=== PATIENT | female | born 1975 | race Caucasian/White ===

== ENCOUNTER → 2019-12-12 18:01 | Outpatient (CLI) | payer OTHER, SELFPAY | PROVIDERS: PCP Internal Medicine; Referring Provider Family Medicine; Visit Provider Family Medicine | DX: Z20.828 Contact with and (suspected) exposure to other viral communicable diseases (principal) | CPT/HCPCS: 87635; 94799; U0003 ==

== ENCOUNTER 2020-08-06 10:33 | Outpatient (RCR) | payer OTHER, SELFPAY | END 2020-10-07 23:59 | LOC: IMMUN 10:33 | PROVIDERS: PCP Internal Medicine; Visit Provider Family Medicine | DX: Z23 Encounter for immunization (principal) | CPT/HCPCS: 0001A; 0002A; 91300 ==

== ENCOUNTER 2021-02-03 09:15 | Day surgery (SDC) | payer OTHER, SELFPAY ==
[2021-02-03] VITALS (11 sets, daily range): BP systolic 122–146; BP diastolic 78–95; PULSE 1–86; RESP 14–17; TEMP 36.2–36.7; O2SAT 82–100; BMI 40.9
--- NOTE | 2021-02-03 | IMM_PTH ---
PATIENT: NICOLE TELLO LOC: [facility] – [place] U#:[id number] AGE/SX: 45/F ROOM: RE02/03/[address]: Dr. Kasey Frederick MD : 1975 BED: DIS: 02/03/2021 SPEC #: [id number] RECD: 02/06/21 13:31 STATUS: KEO REQ #: [id number] SOLOMON: 02/03/21 00:[address]: Kasey Frederick DEPT: IMMUNOHISTOCHEMISTRY RECD BY: Karlene Carlson ENTERED: 02/06/21 13:32 SP TYPE: IMMUNO OTHR DR: Dr. Lilly Mckeon MD Tissues: A - Axillary lymph node, NOS Procedures: CK7 (add) Pankeratin (initial) Pankeratin (add) PHYSICIAN & INSTITUTION [place] [id number] SPECIMEN INFORMATION: Tissue Source: A ? Left axillary sentinel lymph nodes, biopsy Clinical Info: Left breast CA Specimen Number: [id number] A1 & A2 CPT code: 85040, 71812 x3 METHODOLOGY: Deparaffinized sections of prefer/formalin-fixed tissue or PAP/DQ stained slides are incubated with monoclonal/polyclonal antibodies/oligonucleotide probes. Localization is made via biotin free immunoperoxidase method. Appropriate controls are performed and reacted as expected. Results on target cell population are indicated in the following table: RESULTS: ANTIBODY / CLONE RESULT Block A1 CK7 (OV-TL12/30) negative AE1-3 (AE1/AE3/PCK26) negative Block A2 CK7 (OV-TL12/30) negative AE1-3 (AE1/AE3/PCK26) negative These tests were developed and their performance characteristics determined by [facility]. They may not have been cleared or approved by the U.S. Food and Drug Administration. The FDA has determined that such clearance or approval is not necessary. The above immunohistochemical/dualISH markers are ordered and reviewed by the Pathologist. INTERPRETATION: A. Left axillary sentinel lymph nodes, biopsy: Two out of two lymph nodes negative for carcinoma. AM:rosemary 02/09/2021
--- NOTE | 2021-02-03 | AXNB_PTH ---
PATIENT: NICOLE TELLO LOC: [facility] [place] U#:[id number] AGE/SX: 45/F ROOM: RE02/03/[address]: Dr. Kasey Frederick MD : 1975 BED: DIS: 02/03/2021 SPEC #: [id number] RECD: 02/03/21 12:40 STATUS: KEO RELex #: [id number] SOLOMON: 02/03/21 00:[address]: Kasey Frederick DEPT: SURGICAL PATHOLOGY RECD BY: Karlene Carlson ENTERED: 02/03/21 14:13 SP TYPE: AX NODE BX OTHR DR: Dr. Lilly Mckeon MD Tissues: A - Axillary lymph node, NOS B - Left breast, NOS Procedures: Frozen Section (charge) Surgery Specimen Level IV Surgery Specimen Level V HEADER OPERATION: Left breast lumpectomy via wire localization and axillary sentinel lymph node PRE-OP DIAGNOSIS: Left breast CA TISSUE SUBMITTED: A - Left axillary sentinel node, FS, B - Left breast, two long sutures - posterior, two short sutures - anterior, one long suture - lateral, one short suture - superior FROZEN SECTION DIAGNOSIS A. Left axillary sentinel lymph nodes, biopsy: Two out of two lymph nodes, negative for metastatic carcinoma. SJ:rosemary 02/03/2021 MICROSCOPIC DIAGNOSIS A. Left axillary sentinel lymph nodes, biopsy: Two out of two lymph nodes, negative for carcinoma. B. Left breast, lumpectomy: Invasive ductal carcinoma. See synoptic report below. AM:rosemary 02/06/2021 COMMENT A. Immunohistochemistry ([id number]) supports the above diagnosis. B. INVASIVE BREAST CANCER SUMMARY: Procedure: Excision with wire guidance Specimen: Type: Partial breast Size: 6 x 5 x 2.5 cm Laterality: Left breast Invasive Tumor: Tumor site: Left breast Size: 1.5 x 1 x 1 cm Focality: Single focus of carcinoma Histologic type: Invasive ductal carcinoma. Histologic grade (Copeland grade): Glandular/tubular differentiation score: 3 Nuclear pleomorphism score: 3 Mitotic count score: 1 Overall grade: 2 (score of 7) Ductal Carcinoma In Situ: Not present Lobular Carcinoma In Situ: Not present Tumor extension: Skin: No skin present Nipple: No nipple present Skeletal muscle: No skeletal muscle present. Margins: Distance of invasive carcinoma from closest margin is 3 mm from anterior margin. Lymph Nodes: Number of sentinel lymph nodes: 2 Total number of lymph nodes examined: 2 No evidence of macrometastases, micrometastases or isolated tumor cells See specimen ?A? Microcalcifications: Present in neoplastic tissue. Treatment Effect: Unknown Lymphvascular invasion: Not identified Additional Pathologic Findings: Fibrocystic change. Ancillary Studies: Previously performed on same tumor ([facility]#[id number]) ER: 90%, strong intensity OR: 95%, strong intensity Rfo1vqb: 1+ (negative) Clinical History: Mass of breast. PATHOLOGIC STAGE: T1c N0 Mx The above summary is in compliance with [employer] (CAP) Cancer Protocols Checklist and [place] Joint Committee on Cancer (AJCC), Staging Manual, 8th Ed. Case has been reviewed in consultation with Dr. Drummond who concurs with the above diagnosis. IDC:SJ MICROSCOPIC DESCRIPTION Slides are reviewed. GROSS DESCRIPTION A - Received fresh for frozen section diagnosis labeled with the patient's name is a specimen designated left axillary sentinel lymph node. The specimen consists of a piece of adipose tissue measuring 3 x 2 x 1 cm. Two small nodules consistent with lymph nodes are identified, each measuring 0.3 cm in greatest dimension. The entire specimen is submitted in two cassettes as follows: 1 - frozen section, two lymph nodes, 2 - rest of the specimen. / LYUDMILA:rosemary 02/03/21 B - Received fresh for intraoperative consultation labeled with the patient's name is a specimen designated left breast. The specimen consists of a piece of fibroadipose tissue with needle localization measuring 6 x 5 x 2.5 cm. The specimen is oriented by sutures as follows: two long sutures - posterior, two short sutures - anterior, one long suture - lateral, one short suture - superior. The specimen is inked as follows: anterior - yellow, posterior - black, superior - blue, inferior - green, medial - red and lateral - orange. Serial sections reveal a jenkins, indurated tumor mass measuring 1.5 x 1 x 1 cm. This mass is close to the anterior margin of the specimen. This information is conveyed to the surgeon intraoperatively. Sections of the rest of the specimen reveal jenkins-yellow adipose cut surfaces mixed with scant fibrous area. Senior User Experience Architect sections are submitted in 12 cassettes as follows: 1 - perpendicular medial, lateral and posterior margins, 2 - perpendicular superior and inferior margins, 3-5 - entire tumor with closest anterior margin, 6-12 - care support representative sections adjacent and away from the tumor. Sections will be submitted after additional fixation. / SJ:rg 02/04/21 TC:0 CPT: 89563, 05872, 22454 ADDENDUM ADDENDUM ADDENDUM ADDENDUM ADDENDUM ADDENDUM ADDENDUM ADDENDUM 03/17/2021 10:54 ADDENDUM 03/17/2021 10:54 ADDENDUM 03/17/2021 10:54 ADDENDUM 03/17/2021 10:54 ADDENDUM 03/17/2021 10:54 An order for Oncotype testing was received from Dr. Mario. This necessitated case review, block and slide selection by pathologist at [facility]. Breast Cancer Recurrence Score = 5 Results of the complete Oncotype testing ([facility] report) are viewable in EMR under: Reports - Pathology - Lab Pathology Report, Scanned.
--- NOTE | 2021-02-03 07:32 | HP.PCM_ITS ---
History and Physical Date of Admission: 02/03/21 Padmini Vieira 1975 CHIEF COMPLAINT: left breast cancer HPI: The patient is a 45 year old female presents s/p US guided left breast needle core biopsy done on 01/07/2021. She notes some soreness in the area. 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 Allergic rhinitis ? Depressive disorder, not elsewhere classified ? Dysthymic disorder Depression (non-psychotic) ? Esophageal reflux Gastroesophageal reflux ? Exercise-induced asthma As teen, by history. Normal spirometry then. No further testing. ? Gastro-esophageal reflux disease with esophagitis Gastroesophageal reflux ? Narcolepsy Dr. Al ? Restless leg syndrome Feet ? Unspecified sleep apnea Sleep apnea PAST SURGICAL HISTORY EGD W/O OR W/BRUSH/WASH 04-18-00 INCISION EARDRUM,ASPIR,GEN ANESTH 6 yrs old Myringotomy/tubes PAST SURGICAL HISTORY OF 05/24/2002 EXCISION R BREAST, benign Tooth Extraction Current Outpatient Medications sucralfate (CARAFATE) 1 gram tablet Take 1 tablet by mouth twice daily. pantoprazole DR (PROTONIX) 40 mg tablet Take 1 tablet by mouth daily before breakfast. Take on empty stomach, 1/2 hr before meal. sertraline (ZOLOFT) 50 mg tablet Take 1 tablet by mouth once daily. levonorgestrel-ethinyl estradiol 6-5-10 with 30 mcg (TRI-LEVLEN,TRIPHASIL) per tablet Take 1 tablet by mouth once daily. ketoconazole (NIZORAL) 2 % shampoo Cleanse affected skin with lather up to once daily as directed. L.acidoph-B.lactis-B.longum (FLORAJEN3) 460 mg (7.5-6- 1.5 bill. cell) cap Take 1 capsule by mouth once daily. dextroamphetamine 15 mg tab Take 2 pills twice daily cetirizine (ZYRTEC) 10 mg tablet Take 1 tablet by mouth once daily. multivitamin tablet Take 1 tablet by mouth once daily. ALLERGIES: Patient has no known allergies. PERSONAL HISTORY: ? Smoking status: Never Smoker ? Smokeless tobacco: Never Used ? Tobacco comment: No smokers in home, currently or childhood. Substance Use Topics ? Alcohol use: No ? Drug use: No FAMILY HISTORY ? None Mother ? None Father ? Diabetes Maternal Grandmother ? Alzheimer's Disease Maternal Grandmother ? Breast Cancer Paternal Grandmother Dx at age 61 ? Heart Paternal Grandfather ? Multiple Sclerosis Sister 37 ? other (parathyroid tumor) Sister REVIEW OF SYSTEMS: General: The patient NOTES fatigue, denies weight loss, denies weight gain, denies feeling hot, and denies feelings of cold. Eyes: The patient denies glaucoma, denies eye injury/surgery, wears glasses or contacts. Ear/Nose/Throat: The patient NOTES allergies, denies hayfever, denies ear infections, and denies bloody noses. Cardiovascular: The patient denies chest pain, denies heart disease, denies high blood pressure,denies cardiac stent, denies prior heart attack, denies irregular heart beat, denies high cholesterol, denies poor circulation, denies heart failure, other cardiac issues, denies claudication, denies cold feet, denies peripheral arterial stent. Respiratory: The patient denies tuberculosis, denies pneumonia, denies frequent cough, denies pulmonary embolism, denies shortness of breath, and denies coughing up blood. Gastrointestinal: The patient denies difficulty swallowing, NOTES acid reflux, denies ulcers, denies vomiting, denies jaundice/hepatitis, denies gallbladder problems, denies black or tarry stools, denies hemorrhoids, denies bleeding from rectum, denies diverticulitis, denies constipation, denies diarrhea, denies loss of stool control, and denies hernias. Kidney/Bladder: The patient denies kidney stones, denies urine infections, and denies bloody urine. Skin: The patient denies a history of skin cancer, denies bleeding/changing moles, and denies a history of skin rash. Neurologic: The patient denies a history of epilepsy/convulsions, denies headaches, denies head/spinal injuries, and denies stroke/TIA. Psychiatric: The patient denies psychiatric medications, NOTES depression, and denies voices, denies substance abuse. Endocrine: The patient denies thyroid disorders, denies diabetes, and denies hormonal problems. Hematologic: The patient denies a history of bruising, denies bleeding, and denies anemia, denies blood clots. Infections: The patient denies a history of measles and mumps, denies rheumatic fever, and denies sexually transmitted diseases. Musculoskeletal: The patient denies back pain/injury, denies back problems, denies sciatica, denies knee/foot trouble, denies arthritis, or denies gout. Obstetrical: menarche onset at age 12, G0, BCP use since age 22 and at present, LMP 12/26 When was patient's last Mammogram screening? 12/31/2020 Last Colonoscopy: 06/19/2020 Yadira Green LPN PHYSICAL EXAMINATION: General: The patient is 45 year old female, well nourished, well hydrated in no acute distress. The patient is oriented to time, place, and person. VITALS: Blood pressure 128/82, pulse 94, temperature 37.5 ?C (99.5 ?F), height 168.9 cm (5' 6.5), weight 115.2 kg (254 lb), last menstrual period 10/10/2020, SpO2 100 %. Body mass index is 40.38 kg/m?. Head ? Normocephalic. EOM intact with sclera clear and no icterus noted. Neck - supple with no jugular venous distention noted. Trachea is midline. No carotid bruits noted. No thyroid enlargement or thyroid nodules detected. No masses noted. Chest/breast ? no asymmetry of breasts noted, no suspicious skin lesions noted - site of biopsy healing well, no nipple discharge and both nipples everted, no discrete breast masses noted Lungs ? normal respiratory excursion, no adventitial sounds noted. No labored breathing noted, such as retractions. No cough heard. Heart ? regular Abdomen ? soft and benign. Difficult to determine if any masses or organomegaly due to body habitus. Extremities ? no calf tenderness noted. No pitting edema noted. Skin ? normal skin integrity. Lymph ? no cervical adenopathy detected, no supraclavicular adenopathy detected, no axillary adenopathy detected Neurological ? gait normal, no focal deficits noted Psych ? calm and appropriate IMPRESSION: left breast cancer PLAN: I have discussed the above with the patient. I have offered surgical options of the following - lumpectomy followed by radiation therapy versus mastectomy - both would require sentinel lymph node biopsy I have explained the procedure to the patient. I have counseled the patient as to the risks of the procedure, including but not limited to: infection, bleeding, injury to any blood vessels/nerves, scar tissue, lymph leak, seroma, wound infections, complications of anesthesia, etc. ? the patient understands. The patient wishes to proceed. I have answered all questions to the patient?s satisfaction and the patient has no further questions. Diagnoses: (C50.412, Z17.0) Malignant neoplasm of upper-outer quadrant of left breast in female, estrogen receptor positive (HCC) (primary encounter diagnosis)
--- NOTE | 2021-02-03 09:00 | NM_ITS ---
INDICATION: BREAST CANCER -- LEFT SIDE EXAMINATION: NUCLEAR MEDICINE HEPATOBILIARY SCAN - NM [facility] Lymphatics and Lymph nodes imaging TECHNIQUE: 1.1 mCi of Sulfur colloid was administered . COMPARISON: None. FINDINGS: The procedure, risks, alternatives and complications were explained to the patient and consent was obtained. The patient was positioned supine on the bed, examination of the left axillary region was performed, the biopsy site was identified and confirmed by the patient. The left axillary region surrounding the biopsy site was then prepared in standard, sterile fashion. Radiotracer (1.1 mCi of Sulfur colloid) was then injected approximately 1 cm from the biopsy site at 12, 3, 6 and 9 o''clock. The patient tolerated the procedure well with no immediate complications. The syringes, gauze and injection material were disposed by the nuclear supervising operator. NM/Lymph Node Injection Only IMPRESSION: Injection of the sulfur colloid radiotracer for left NM [facility] Lymphatics and Lymph nodes imaging Electronically Signed: David Marte MD at 14:18 EDT Tel , Service support ,
[2021-02-03 09:38] LABS: Internal QC Validated? YES +Cl - CLEAR BKGD; Pregnancy, Urine Negative Negative
[2021-02-03] MEDS: Lactated Ringers 1,000 ML 100 ML IV (10:47)
--- NOTE | 2021-02-03 11:00 | BI_ITS ---
SURGICAL BREAST SPECIMEN RADIOGRAPH CLINICAL: Document presence of tissue clip marker in biopsy specimen. FINDINGS: Specimen shows presence of tissue clip marker. Pathology is pending and an addendum to the biopsy report will be performed after the final pathologic diagnosis is rendered. Electronically Signed: Hadley Hudson MD at 8:55 EDT Tel , Service support , BI/Breast Biopsy Specimen
[2021-02-03 11:31] LABS: Bedside Glucose 73 mg/dL (70-110)
--- NOTE | 2021-02-03 11:45 | OP.PCM_ITS ---
Report of Operation Date of Procedure: 02/03/21 Pre-Operative Diagnosis: left breast cancer - UOQ; ER pos Post-Operative Diagnosis: same Surgery/Procedure Performed:: left breast lumpectomy via wire localization, left axillary sentinel lymph node biopsy Surgeon: Kasey Frederick cover making machine operator: Shant Gonzalez Type of Anesthesia: General Anesthesiologist: Dominick Monroe Specimen's removed: left breast lumpectomy, left axillary sentinel lymph edgardo tissue Estimated Blood Loss (mL): < 10 ml Fluids Replaced: 1200 ml RL Description of Procedure: After informed consent was given, the patient was brought into the Breast Stereotactic Radiology suite. Appropriate time out protocol was followed. The patient was then placed in the prone position on the [place] stereotactic table. The patient?s left breast was placed in the opening at the head of the table. A licensed social worker compression mammogram was then obtained in the CC view. The marker clip that was previously placed was identified. Stereo pictures of the lesion were then taken for XYZ coordinates. The Kopans needle was then positioned where it would be entering into the patient?s breast. The skin at this site was then cleansed with a surgical skin preparation. The skin and subcutaneous tissues at this site were then infiltrated with 1% xylocaine. The Kopans needle was then positioned into the patient?s breast at the proper coordinates of depth. A licensed social worker film was obtained which revealed the wire in proper position. The patient was then placed in the supine position and the wire was taped into place. A unilateral mammogram in the CC and MLO view were then taken for use in the OR. The patient tolerated this portion of the procedure well and was brought to the AC awaiting surgery in the OR. The patient was then brought to the Operating Room. Appropriate time out protocol was followed. The patient was then placed on the operating table in the supine position. The patient had radioactive isotope injected earlier this day by the radiologist for radioactive tracer tracking. After the patient was placed under general anesthesia by the anesthesia provider, the periareolar subcutaneous tissues of the left breast were infiltrated with lymhazurin blue dye - diluted to a 50:50 mixture with saline - total of 3 ml used, using a 25G needle. Gentle massage was then done for a few minutes. The left breast with the wire in placed and the torso was then prepped with a sterile surgical skin preparation and sterile surgical drapes were placed. The Neoprobe device was brought into the operative field. A skin incision was made in the inferior portion of the hair bearing area of the left axilla. It was carried through to the subcutaneous tissues using electrocautery. Any hemorrhage was controlled with electrocautery. A Weitlaner retractor was used for increased operative exposure. The Neoprobe 10 second count over the tumor bed was 428. The 10 second count over the abdominal area was 1. The 10 second count over the axilla was 124. Blunt dissection was conducted into the soft tissues of the axilla. The blue lymphatic vessels were then followed by the blunt dissection until blue colored lymph nodes were identified. This lymph edgardo tissue was from the surrounding tissue by blunt dissection and the vascular pedicles ligated with ligaclips. The Neoprobe 10 second count of the lymph edgardo tissue was 316. The lymph edgardo tissue was then forwarded to pathology for frozen section. Pathology revealed that two lymph nodes were negative for metastatic disease. Careful examination was done in the axilla, no further palpable masses were noted in the axilla. No further blue colored tissue was noted in the axilla. The 10 second Neoprobe count in the axilla was 21. Hemostasis was carefully controlled by electrocautery. The deep tissues were approximated with 2-0 vicryl suture. The skin edges were reapproximated with 3-0 vicryl suture in a horizontal mattress fashion and then further closed with running 4-0 monocryl in a subcuticular fashion. Cavilon and steristrips were then placed to reinforce the skin closure and proper sterile dressings were applied. A wire had already been placed in the stereotactic biopsy room in the radiology department as described above. The left breast with the wire in placed was then prepped with a sterile surgical skin preparation and sterile surgical drapes were placed. The skin and subcutaneous tissues at the site of the breast lesion was then infiltrated with 1% xylocaine with epinephrine. The ultrasound device was brought into the operative field; the probe wrapped with a sterile sheath. The abnormal ultrasound breast lesion was identified and then markings placed on the patient's breast skin to gloria out an appropriate incision. A transverse incision was then made at the wire entrance site with a 15 blade scalpel and carried down through to the subcutaneous tissues. Hemostasis was controlled with electrocautery. The wire was then palpated out within the breast tissue. It was brought into the wound from outside. The breast tissue surrounding the wire was then carefully palpated out and from the surrounding tissues using electrocautery. The breast tissue, once from the breast, was then forwarded to the radiology department, where a specimen mammogram revealed that the marker clip was within the specimen. The breast tissue was then forwarded to pathology for analysis. Pathology review revealed that the closest margin was anterior, however, I did note that there was a small opening into the biopsy cavity at that location which I closed with a silk suture to keep the biopsy cavity intact. I had noted that there was a least 0.5 cm of normal tissue at this location. Will await final pathology. The wound cavity was carefully examined. No further suspicious tissue was palpated or visualized. Hemostasis was carefully controlled with electrocautery. The subdermal tissues were then approximated with vicryl suture. The incision was then reapproximated close using running monocryl suture. Cavilon and steristrips were then placed to reinforce the skin closure. Sponge, needle, and instrument count were verified and correct at the time of skin closure. A sterile dressing was then applied. The patient was then brought to the Recovery Room in stable condition. Admit VTE Documentation VTE Present on Admission: Yes VTE Mechan Device Prophylaxis: SCD's
[2021-02-03] MEDS: Isosulfan Blue 1% 5 ML Vial (12:10)
[2021-02-03] MEDS: Cefazolin 2 GM in 0.9% Normal Saline 100 ML IV (12:11)
[2021-02-03] MEDS: 0.9% Normal Saline (Pres. free 10 ML Vial (12:14)
[2021-02-03] MEDS: Bupivacaine 0.25% 30 ML Vial (12:15)
[2021-02-03 14:06] LABS: Bedside Glucose 104 mg/dL (70-110)
--- NOTE | 2021-02-03 14:27 | DCINST_ITS ---
Discharge Instructions Follow Up Care Test Results: Test results from this visit will be discussed in further detail at your follow-up appointment, if applicable. Discharge Plan Admission Attending Provider: Kasey Frederick Primary Care Provider: Lilly Mckeon Instructions Additional Instructions / Restrictions: Recommended pain control regimen - May take 600 mg ibuprofen (Motrin) and then in 3-4 hours, may take 650 mg acetaminophen (Tylenol), then in 3-4 hours may take 600 mg ibuprofen, then in 3- 4 hours may take 650 mg acetaminophen and so on for 2-3 days May take narcotic pain medication for pain that is not controlled by above and at night for comfort through the night Leave dressings in place May shower, do not scrub in the areas of the dressings as they may unravel. Do not soak - no tub baths/swimming Ice applied to areas of discomfort may help No lifting/pushing/pulling greater than 10 pounds for a month with left arm. For breast surgeries - wear supportive bra during the day to prevent the weight of your breasts from pulling on the incisional site. Please call my office for an appointment to see me in 1 week. Office number is If any questions, please call my office at and ask the print operator for the general surgery nurses desk Discharge Orders/Prescriptions Prescriptions: New hydrocodone-acetaminophen 5-325 mg tablet 1 tab PO Q8H 5 Days Qty: 15 RF: 0 No Action cetirizine [Zyrtec] 10 mg Tablet 10 mg PO DAILY RF: 0 dextroamphetamine [Dexedrine] 10 mg Tablet 60 mg PO DAILY RF: 0 pantoprazole [Protonix] 40 mg Tablet,Delayed Release (Dr/Ec) 40 mg PO DAILY RF: 0 multivitamin Capsule 1 cap PO DAILY RF: 0 sertraline [Zoloft] 50 mg Tablet 50 mg PO DAILY RF: 0 levonorg-eth estrad triphasic [Triphasil (28)] 50-30 (6)/75-40 (5)/125-30(10) Tablet 1 tab PO DAILY RF: 0 Probiotic 10 billion cell Capsule 10,000 mmu cells PO DAILY RF: 0 Referrals / Follow Up: Lilly Mckeon MD [Primary Care Provider] - Disposition Disposition (needs filled in before D/C Order can be placed): Home, Self Care
[2021-02-03] MEDS: Scopolamine 1mg/72hr Patch 1 PATCH TD (16:55)
== END 2021-02-03 17:35 | disposition home or self-care (01) ==
LOC: SDC 09:17 → AC 09:19
PROVIDERS: Anesthesiology; PCP Internal Medicine; Referring Provider Surgery; Visit Provider Surgery
PROC: 0HBV0ZZ Excision of Bilateral Breast, Open Approach (ICD-10-PCS; CPT 19302; principal; 2021-02-03 11:45)
DX: C50.412 Malignant neoplasm of upper-outer quadrant of left female breast (principal); Z17.0 Estrogen receptor positive status [ER+]; R59.0 Localized enlarged lymph nodes; F32.9 Major depressive disorder, single episode, unspecified; G25.81 Restless legs syndrome; G47.30 Sleep apnea, unspecified; K21.9 Gastro-esophageal reflux disease without esophagitis; Z79.899 Other long term (current) drug therapy
CPT/HCPCS: 19301; 38500; 19281; 38792; 76098; 81025; 82962; 88305; 88307; 88331; 88341; 88342; A9541; J7050; J7120; J2405; J3490; Q9968

== ENCOUNTER 2021-03-12 10:43 | Day surgery (SDC) | payer OTHER, SELFPAY ==
--- NOTE | 2021-03-10 13:20 | PCM.HP.BLA ---
History and Physical Date of Admission: 03/12/21 Pre-Op History and Physical ? HPI: The patient is a 45 year old female presenting for pre-operative visit. She is scheduled for Lap BSO, pelvic washing, for ER/NC + breast cancer BRCA testing still pending on 03/12/21. Procedure discussed along with risks, benefits and complications. Other alternatives discussed for management. Consent form signed? Yes. ? ? PAST MEDICAL HISTORY PAST MEDICAL HISTORY Diagnosis Date ? Allergic rhinitis ? ? Carcinoma of breast upper outer quadrant, left (HCC) 01/2021 ? Depressive disorder, not elsewhere classified ? ? Dysthymic disorder ? ? Depression (non-psychotic) ? Esophageal reflux ? ? Gastroesophageal reflux ? Exercise-induced asthma ? ? As teen, by history. Normal spirometry then. No further testing. ? Gastro-esophageal reflux disease with esophagitis ? ? Gastroesophageal reflux ? Narcolepsy ? ? Dr. Al ? Restless leg syndrome ? ? Feet ? Unspecified sleep apnea ? ? Sleep apnea ? ? PAST SURGICAL HISTORY PAST SURGICAL HISTORY Procedure Laterality Date ? BX/REMV,LYMPH NODE,DEEP AXILL Left 02/03/2021 ? EGD W/O OR W/BRUSH/WASH ? 04/18/2000 ? EGD ? INCISION EARDRUM,ASPIR,GEN ANESTH ? 6 yrs old ? Myringotomy/tubes ? MASTECTOMY, PARTIAL Left 02/03/2021 ? PAST SURGICAL HISTORY OF ? 05/24/2002 ? EXCISION R BREAST, benign ? UNSPECIFIED ORAL SURGERY PROCEDURE, BY REPORT ? 05/02/2014 ? Tooth Extraction ? ? ? CURRENT MEDICATIONS Current Outpatient Medications Medication Sig Dispense Refill ? pantoprazole DR (PROTONIX) 40 mg tablet Take 1 tablet by mouth daily before breakfast. Take on empty stomach, 1/2 hr before meal. 90 tablet 1 ? cholecalciferol, vitamin D3, (VITAMIN D3 ORAL) Take by mouth. ? ? ? sertraline (ZOLOFT) 50 mg tablet Take 1 tablet by mouth once daily. 90 tablet 3 ? ketoconazole (NIZORAL) 2 % shampoo Cleanse affected skin with lather up to once daily as directed. 360 mL 3 ? L.acidoph-B.lactis-B.longum (FLORAJEN3) 460 mg (7.5-6- 1.5 bill. cell) cap Take 1 capsule by mouth once daily. 30 capsule 2 ? dextroamphetamine 15 mg tab Take 2 pills twice daily ? ? ? cetirizine (ZYRTEC) 10 mg tablet Take 1 tablet by mouth once daily. 30 tablet 2 ? multivitamin tablet Take 1 tablet by mouth once daily. ? ? ? No current facility-administered medications for this visit. ? ? ALLERGIES: Patient has no known allergies. ? PERSONAL HISTORY: SOCIAL HISTORY Social History ? Tobacco Use ? Smoking status: Never Smoker ? Smokeless tobacco: Never Used ? Tobacco comment: No smokers in home, currently or childhood. Vaping Use ? Vaping Use: Never used Substance Use Topics ? Alcohol use: No ? Drug use: No ? FAMILY HISTORY: FAMILY HISTORY FAMILY HISTORY Problem Relation Age of Onset ? None Mother ? ? None Father ? ? Diabetes Maternal Grandmother ? ? Alzheimer's Disease Maternal Grandmother ? ? Breast Cancer Paternal Grandmother ? ? Dx at age 61 ? Heart Paternal Grandfather ? ? Multiple Sclerosis Sister 37 ? other (parathyroid tumor) Sister ? ? ? REVIEW OF SYMPTOMS: negative except as noted above PHYSICAL EXAMINATION: ? VITALS: Blood pressure 132/80, height 5' 6.5 (1.689 m), weight 255 lb (115.7 kg), last menstrual period 02/17/2021. ? GENERAL: The patient is well nourished, well hydrated in no acute distress. , The patient is oriented to time, place, and person. NECK: full range of motion NEURO: A&O x3 ? IMPRESSION: personal h/o ER/NC + Breast cancer, Oncogenic testing still pending at this time- Per oncology- recommend BSO. ? PLAN: Lap BSO, Pelvic washing ? Pt has been counseled on risks/benefits and alternatives of surgery including but not limited to anesthesia, bleeding, infection, injury to pelvic structures including bowel, bladder, ureters and vessels. Pt wishes to proceed with surgery at this time. Pre and post op instructions reviewed Covid testing reviewed ? I have reviewed and updated past medical and surgical history, medications and allergies Zully Flores MD ?8:49 AM Office Visit on 03/10/2021 Office Visit on 03/10/2021 Note shared with patient
[2021-03-12] VITALS (12 sets, daily range): BP systolic 103–135; BP diastolic 56–89; PULSE 51–72; RESP 14–16; TEMP 36.1–36.6; O2SAT 93–99; BMI 40.6
--- NOTE | 2021-03-12 10:58 | EKG12_ITS ---
Test Reason : PRE-OP Blood Pressure : / mmHG Vent. Rate : 084 BPM Atrial Rate : 084 BPM P-R Int : 134 ms QRS Dur : 082 ms QT Int : 406 ms P-R-T Axes : 052 027 031 degrees QTc Int : 479 ms Sinus rhythm with frequent Premature ventricular complexes Otherwise normal ECG When compared with ECG of 30-OCT-2001 11:16, Premature ventricular complexes are now Present Confirmed by RENE HOWE, TULIO ([id number]), school photograph editor HARPER OCHOA ([id number]) on 03/17/2021 11:15:02 AM Referred By: GILBERT Confirmed By:TULIO LÓPEZ MD
[2021-03-12 11:43] LABS: Hematocrit 41.7 % (37-47); Hemoglobin 14.1 g/dL (12.0-15.0); Mean Corp Hgb Conc 33.8 g/dL (32-36); Mean Corpuscular Hgb 29.7 pg (27.0-32.0); Mean Platelet Vol. 9.8 fl (6.2-12.0); Platelet Count 251 K/mm3 (150-450); RBC Distribution Width CV 13.2 % (11.6-14.6); RBC Distribution Width SD 42.5 fl (35.1-43.9); Red Blood Count 4.74 M/mm3 (4.2-5.4)
[2021-03-12 11:57] LABS: Internal QC Validated? YES +Cl - CLEAR BKGD; Pregnancy, Serum, hCG Quali. NEGATIVE Negative
[2021-03-12] MEDS: Lactated Ringers 1,000 ML 15 ML IV (12:00)
--- NOTE | 2021-03-12 12:20 | FLU_PTH ---
PATIENT: NICOLE TELLO LOC: [facility] – [place] U#:[id number] AGE/SX: 45/F ROOM: RE03/12/[address]: Dr. Zully Lopez, MDDOB: 1975 BED: DIS: 03/12/2021 SPEC #: [id number] RECD: 03/12/21 13:23 STATUS: KEO TAMIKA #: [id number] SOLOMON: 03/12/21 12:[address]: Zully Lopez DEPT: CYTOLOGY RECD BY: Elisabeth Bro ENTERED: 03/12/21 13:52 SP TYPE: Fluid OTHR DR: Dr. Lilly Mckeon MD Tissues: Pelvis, NOS Procedures: Special Stain Group II Surgery Specimen Level IV Cytospin Fluid HEADER OPERATION: Laparoscopic bilateral salpingo-oophorectomy, pelvic washing PRE-OP DIAGNOSIS: ER/VT positive, breast cancer TISSUE SUBMITTED: Pelvic washings DIAGNOSIS CYTOLOGY Pelvic washing fluid (cytospin and cell block): Negative for malignant cells. LYUDMILA:rosemary 03/13/2021 CYTOLOGY STUDY Slides are reviewed. CYTOLOGY GROSS Received is 45 ml of opaque cloudy fluid labeled with the patient's name and and designated per the requisition as pelvic washings. Submitted for cytology preparation including cell block. / rosemary 03/12/2021 TC:4 CPT: 64064, 75308
--- NOTE | 2021-03-12 12:20 | OV_PTH ---
PATIENT: NICOLE TELLO LOC: [facility] U#:[id number] AGE/SX: 45/F ROOM: RE03/12/[address]: Dr. Zully Lopez, MDDOB: 1975 BED: DIS: 03/12/2021 SPEC #: [id number] RECD: 03/12/21 13:23 STATUS: KEO TAMIKA #: [id number] SOLOMON: 03/12/21 12:[address]: Zully Lopez DEPT: SURGICAL PATHOLOGY RECD BY: Elisabeth Bro ENTERED: 03/12/21 13:51 SP TYPE: OVARY OTHR DR: Dr. Lilly Mckeon MD Tissues: Ovary, NOS Procedures: Surgery Specimen Level IV HEADER OPERATION: Laparoscopic bilateral salpingo-oophorectomy, pelvic washing PRE-OP DIAGNOSIS: ER/GA positive, breast cancer TISSUE SUBMITTED: Bilateral fallopian tubes and ovaries MICROSCOPIC DIAGNOSIS Bilateral fallopian tubes and ovaries, bilateral salpingo-oophorectomy: Bilateral fallopian tubes - no pathologic diagnosis. Bilateral ovaries ? physiologic follicular and corpus luteal cysts. LYUDMILA:rosemary 03/13/2021 MICROSCOPIC DESCRIPTION Slides are reviewed. GROSS DESCRIPTION Received in fixative is one container labeled with the patient's name and designated bilateral fallopian tubes and ovaries. The specimen consists of bilateral fallopian tubes and ovaries. They are not identified as right or left. One of the fallopian tubes measure 5 cm in length and 0.6 cm in diameter. The fimbrial end is identified. Sections reveal unremarkable cut surfaces. No tubo-ovarian adhesions are noted. The adjacent ovary measures 2.5 x 2 x 1.5 cm. Sections reveal multiple cysts filled with clear to hemorrhagic fluid. The largest cyst measures 0.5 cm in greatest dimension. The second fallopian tube is similar appearance to first one and measures 5 cm in length and 0.6 cm in diameter. The second ovary measures 3 x 2.5 x 2 cm. Sections reveal a hemorrhagic cyst consistent with corpus luteal cyst measuring 1.5 cm in greatest dimension. [employer] Consultant sections are submitted in six cassettes as follows: 1 ? one fallopian tube, 2 & 3 ? adjacent ovary, 4 ? second fallopian tube, 5 & 6 ? second ovary. / LYUDMILA:rosemary 03/12/21 TC:4 CPT: 41795 x2
[2021-03-12] MEDS: Bupivacaine Mpf 0.5% 30 ML VIAL (12:33)
--- NOTE | 2021-03-12 12:55 | PCM.OPRPT ---
Problems Associated Problem List Diagnoses (1) Carcinoma of breast, estrogen and progesterone receptor positive: Report of Operation Date of Procedure: 03/12/21 Pre-Operative Diagnosis: ER/NH positive breast cancer Post-Operative Diagnosis: same, enodmetriosis Surgery/Procedure Performed:: Laparoscopic BSO, Pelvic washing Description of Surgical Findings:: Small endometriotic lesions noted in Posterior [place]. no adhesions. Normal tubes. right ovary with simple appearing cyst. Surgeon: Zully Lopez supervisor sawing and assembly: Peace Burnett Type of Anesthesia: General and Local Special Medications: 0.5% marcaine Specimen's removed: Bilateral fallopian tubes and ovaries, Pelvic washings Drains: none Estimated Blood Loss (mL): 5cc Fluids Replaced: 800 Description of Procedure: After informed consent was obtained patient was taken to the operating room she was placed in supine position she was given anesthesia. She was then placed in the [facility] stirrups and she was prepped and draped in normal sterile fashion. Bladder was drained prior to the start of procedure approximately 100cc of clear yellow urine was expelled. At this time attention was turned to the vaginal portion where weighted speculum placed at posterior fornix vagina single-tooth tenaculum was used to gently grasp the internal the cervix. uterus was gently sounded to approximately 8cm. Uterine manipulator was placed without difficulty. Legs then placed in parallel with the abdomen the tenaculum and the weighted speculum were removed. 2 towel clamps were placed superior to umbilicus. After Marcaine was injected a small umbilical incision was made and a 5 mm trocar was placed under direct visualization. CO2 gas was used to insufflate the intra-abdominal cavity. Upon inspection right ovary with small simple appearing cyst- small white powder burn lesion in posterior CDS likley represents endometriosis. At this time then the LLQ port was placed again Marcaine was injected small incision was made a knife and the 5 mm trocar was placed. this was repeated on right side. 30 cc NS was placed to collect pelvic washings. Ureters visualized. At this time then tubes were traced back to the fimbriated ends. Ligasure was used to coagulate and ligate along IP ligament, uteroovarian and the mesosalpinx bilaterally until ovaries and tubes removed completely. Good hemostasis was appreciated. The LLQ incision was extended and 10mm endocatch bag placed- specimens collected and removed. The johan lr was then used to closed fascia of umbilical incision using 0-vicryl sutre. At this time procedure was deemed complete successful. The gas was desufflated on from the intra-abdominal cavity. The trochars were removed. Skin was closed using 4-0 Monocryl in a subcutaneous fashion. Dermabond glue was placed. Instrument lap and needle counts were correct ?2. The uterine manipulator was removed. Vaginal sweep was performed it was negative. There were no complications anticipated normal postoperative course for this patient. Grafts/Implants Used: none Procedure Start Time: 12:33 Procedure Stop Time: 13:02 Complications none Admit VTE Documentation VTE Present on Admission: Yes VTE Mechan Device Prophylaxis: SCD's VTE Pharm Prophylaxis ordered?: No Reason prophylaxis not ordered:: Procedure Not Indicated
--- NOTE | 2021-03-12 13:03 | PCM.DC ---
Discharge Instructions Diet Discharge Diet: No restrictions Activity May resume sexual activity in: 2 weeks Lifting Restrictions: 20-25 lbs Dressing / Incision Call your doctor if your incision/area has: Continuous Slow Oozing, Sudden Increased Bleeding, Increased Pain/ Swelling, Increased Redness, Foul Smelling Discharge and Swelling at the incision site Call your doctor if you observe: Fever of 101 or Higher, Inability to urinate, Inability to have a bowel movement, Using more than 1 pad per hour and Uncontrolled pain Additional Dressing/Incision Instructions:: You have skin glue over your incision sites, do not pick off. You may shower and let the soap and water run over the incision sites and dab dry. Follow Up Care Please Follow Up With: Zully Lopez MD When: 1-2 weeks post OP if you need an appointment please call [phone] Test Results: Test results from this visit will be discussed in further detail at your follow-up appointment, if applicable. Discharge Plan Admission Attending Provider: Zully Lopez Primary Care Provider: Lilly Mckeon Discharge Orders/Prescriptions Prescriptions: Continued cetirizine [Zyrtec] 10 mg Tablet 10 mg PO DAILY RF: 0 dextroamphetamine 10 mg Tablet 60 mg PO DAILY RF: 0 pantoprazole [Protonix] 40 mg Tablet,Delayed Release (Dr/Ec) 40 mg PO DAILY RF: 0 multivitamin Capsule 1 cap PO DAILY RF: 0 sertraline [Zoloft] 50 mg Tablet 50 mg PO DAILY RF: 0 No Action Probiotic 10 billion cell Capsule 10,000 mmu cells PO DAILY RF: 0 Referrals / Follow Up: Lilly Mckeon MD [Primary Care Provider] -
[2021-03-12 14:26] LABS: Troponin-I HS 6 pg/mL (3.0-54.0)
[2021-03-12 14:29] LABS: Anion Gap 8 (5-15); BUN 8 mg/dL (7-18); BUN/Creat Ratio 12.4 RATIO (10-20); Calcium,Total 8.3 mg/dL (8.5-10.1); Chloride 106 mmol/L (98-107); Creatinine, Serum 0.64 mg/dL (0.55-1.02); EST Glomerular Filtration Rate 105 mL/min (>60); Est Glom Filt Rate - Afr Amer 127 mL/min (>60); Estimated Creatinine Clearance 103.92 ml/min; Glucose 99 mg/dL (74-106); Potassium 3.9 mmol/L (3.5-5.1); Sodium Level 139 mmol/L (136-145)
[2021-03-12] MEDS: HYDROcodone Bitartrate/Apap 5/325 Tablet PO (15:50)
[2021-03-27 08:07] LABS: Cytology, Body Fluid / CSF SEE PATHOLOGY REPORT
== END 2021-03-12 18:29 | disposition home or self-care (01) ==
LOC: SDC 10:44 → AC 10:45
PROVIDERS: Anesthesiology; PCP Internal Medicine; Visit Provider Obstetrics & Gynecology
PROC: (CPT 58661; principal; 2021-03-12 12:05)
DX: N80.3 Endometriosis of pelvic peritoneum (principal); N83.12 Corpus luteum cyst of left ovary; N83.11 Corpus luteum cyst of right ovary; N83.02 Follicular cyst of left ovary; N83.01 Follicular cyst of right ovary; C50.412 Malignant neoplasm of upper-outer quadrant of left female breast; Z17.0 Estrogen receptor positive status [ER+]; G47.419 Narcolepsy without cataplexy; G47.30 Sleep apnea, unspecified; K21.9 Gastro-esophageal reflux disease without esophagitis; F32.A Depression, unspecified; Z79.899 Other long term (current) drug therapy
CPT/HCPCS: 00840; 58661; 80048; 84484; 84703; 85027; 88108; 88302; 88305; 88313; 93005; J7120; J2405